=== PATIENT | male | born 1960 | race Caucasian/White ===

== ENCOUNTER 2016-07-10 09:23 | Emergency (ER) | payer MEDICARE, MEDICAID ==
--- NOTE | 2016-07-10 10:08 | ER Document Report ---
ED General - General Stated Complaint: PENILE SWELLING Mode of Arrival: Medic Information source: Patient Notes: 56-year-old male presents with 2 separate complaints. Patient's initial complaint is groin swelling patient denies any abdominal pain vomiting or constipation. Patient had a bowel movement prior to arrival. Patient also admits to intermittent cough that started only an hour ago TRAVEL OUTSIDE OF THE [place] IN LAST 30 DAYS: No - HPI Onset: Yesterday Onset/Duration: Sudden Quality of pain: No pain Severity: Mild Pain Level: Denies Associated symptoms: Nonproductive cough, Other Exacerbated by: Denies Relieved by: Denies Similar symptoms previously: No Recently seen / treated by doctor: No - Related Data Allergies/Adverse Reactions: No Known Allergies Allergy (Unverified 02/18/16 16:21) Past Medical History - Social History Smoking Status: Never Smoker Cigarette use (# per day): No Chew tobacco use (# tins/day): No Smoking Education Provided: No Family History: Reviewed & Not Pertinent Patient has suicidal ideation: No Patient has homicidal ideation: No Review of Systems - Review of Systems Notes: REVIEW OF SYSTEMS: CONSTITUTIONAL : Denies fever, chills, or sweats. Denies recent illness. EENT: Denies eye, ear, throat, or mouth pain or symptoms. Denies nasal or sinus congestion or discharge. Denies throat, tongue, or mouth swelling or difficulty swallowing. CARDIOVASCULAR: Denies chest pain. Denies palpitations or racing or irregular heart beat. Denies ankle edema. RESPIRATORY: Admits cough GASTROINTESTINAL: Admits to inguinal swelling GENITOURINARY: Denies difficulty urinating, painful urination, burning, frequency, blood in urine, or discharge. MUSCULOSKELETAL: Denies back or neck pain or stiffness. Denies joint pain or swelling. SKIN: rash on RLQ HEMATOLOGIC : Denies easy bruising or bleeding. LYMPHATIC: Denies swollen, enlarged glands. NEUROLOGICAL: Denies confusion or altered mental status. Denies passing out or loss of consciousness. Denies dizziness or lightheadedness. Denies headache. Denies weakness or paralysis or loss of use of either side. Denies problems with gait or speech. Denies sensory loss, numbness, or tingling. Denies seizures. PSYCHIATRIC: Denies anxiety or stress. Denies depression, suicidal ideation, or homicidal ideation. ALL OTHER SYSTEMS REVIEWED AND NEGATIVE. Dictation was performed using Dragon voice recognition software PHYSICAL EXAMINATION: GENERAL: Well-appearing, well-nourished and in no acute distress. HEAD: Atraumatic, normocephalic. EYES: Pupils equal round and reactive to light, extraocular movements intact, sclera anicteric, conjunctiva are normal. ENT: Nares patent, oropharynx clear without exudates. Moist mucous membranes. NECK: Normal range of motion, supple without lymphadenopathy LUNGS: Breath sounds clear to auscultation bilaterally and equal. No wheezes rales or rhonchi. HEART: Regular rate and rhythm without murmurs ABDOMEN: Soft, nontender, nondistended abdomen. No guarding, no rebound. No masses appreciated. Mild inguinal hernia easily reproducible Musculoskeletal: Normal range of motion, no pitting or edema. No cyanosis. NEUROLOGICAL: Cranial nerves grossly intact. Normal speech, normal gait. Normal sensory, motor exams PSYCH: Normal mood, normal affect. SKIN: circular scaly rash noted Course - Re-evaluation Re-evalutation: 07/10/16 10:08 Patient is in no respirator distress does not appear to have any life- threatening concerns at this time, x-rays are pending 07/10/16 11:04 X-rays none no significant abnormalities, patient will be sent home with inhaler and will be treated for ringworm otherwise stable for discharge After performing a Medical Screening Examination, I estimate there is LOW risk for ACUTE CORONARY SYNDROME, RESPIRATORY FAILURE, SEPSIS OR MENINGITIS, thus I consider the discharge disposition reasonable. The patient and I have discussed the diagnosis and risks, and we agree with discharging home with close follow- up. We also discussed returning to the Emergency Department immediately if new or worsening symptoms occur. We have discussed the symptoms which are most concerning (e.g., changing or worsening pain, trouble swallowing or breathing, neck stiffness, fever) that necessitate immediate return. 07/10/16 11:04 - Diagnostic Test Radiology reviewed: Image reviewed, Reports reviewed Discharge - Discharge Clinical Impression: Ringworm of body, Bronchitis Inguinal hernia Qualifiers: Obstruction and gangrene presence: without obstruction or gangrene Laterality: unilateral Recurrence: non-recurrent Qualified Code(s): K40.90 - Unilateral inguinal hernia, without obstruction or gangrene, not specified as recurrent Condition: Stable Disposition: HOME, SELF-CARE Instructions: Ringworm (Tinea Corporis) ([facility]), Bronchitis With Bronchospasm ( Wheezing) ([facility]) Additional Instructions: Follow up with your physician tomorrow for further care or return to the ED IMMEDIATELY if symptoms worsen or new concerns occur Prescriptions: Ketoconazole 30 gm TP BID 28 Days
[2016-07-10] MEDS ORDERED: ALBUTEROL SULFATE HFA (90 MCG/PUFF) 8 GM MDI (1 MDI/ER DISP) IH PRN (11:06)
== END 2016-07-10 19:00 | disposition home or self-care (01) ==
LOC: ER 09:23
DX: K40.90 Unilateral inguinal hernia, without obstruction or gangrene, not specified as recurrent (principal); B35.4 Tinea corporis; J40 Bronchitis, not specified as acute or chronic; R05 Cough
CPT/HCPCS: 99283; 74020; 71020; J3490

== ENCOUNTER 2016-08-30 14:14 | Emergency (ER) | payer MEDICARE, MEDICAID ==
--- NOTE | 2016-08-30 14:47 | ER Document Report ---
ED Respiratory Problem - General Mode of Arrival: Medic Information source: Patient TRAVEL OUTSIDE OF THE [place] IN LAST 30 DAYS: No - HPI Patient complains to provider of: Cough Onset: Just prior to arrival Duration: Worse/persistent Quality of pain: No pain Sputum amount: Small Similar symptoms previously: No Recently seen / treated by doctor: No - General Stated Complaint: COUGH Notes: Patient is a 56-year-old male who presents to the emergency department today with complaints of "a small amount of blood" in his sputum today. Patient states he had a "random cough" and noticed a fingernail-sized amount of blood in his sputum today prior to arrival. Patient has smoked for quite some time and continues to smoke however he states "he is quitting today". Patient resides at the [facility] but it is somewhat unclear why he is there. Patient is a poor historian so history is limited. Patient states he is mildly nauseated but denies any fevers, vomiting, or dark/tarry stools. (NAOMI GRECO) - Related Data Allergies/Adverse Reactions: No Known Allergies Allergy (Verified 07/10/16 11:25) Past Medical History - General Information source: Patient - Social History Smoking Status: Current Every Day Smoker Cigarette use (# per day): Yes Lives with: [facility] Family History: Reviewed & Not Pertinent - Past Medical History Cardiac Medical History: Reports: Hx Congestive Heart Failure, Hx Hypercholesterolemia, Hx Hypertension Pulmonary Medical History: Reports: Hx COPD Endocrine Medical History: Reports: Hx Diabetes Mellitus Type 2 GI Medical History: Reports: Hx Gastroesophageal Reflux Disease Surgical Hx: Negative Review of Systems - Review of Systems Constitutional: denies: Fever EENT: No symptoms reported Cardiovascular: No symptoms reported Respiratory: See HPI, Cough, Sputum - w/ blood Gastrointestinal: See HPI, Nausea. denies: Vomiting, Black stools Genitourinary: No symptoms reported Male Genitourinary: No symptoms reported Musculoskeletal: No symptoms reported Skin: No symptoms reported Hematologic/Lymphatic: No symptoms reported Neurological/Psychological: No symptoms reported -: Yes All other systems reviewed and negative Physical Exam - Notes Notes: Physical Exam: General: Alert, appears well. HEENT: Normocephalic. Atraumatic. PERRL. Extraocular movements intact. Oropharynx clear. Neck: Supple. Non-tender. Respiratory: No respiratory distress. Clear and equal breath sounds bilaterally. Cardiovascular: Regular rate and rhythm. Abdominal: Obese. Easily reducible hernia in RLQ. No distension. Normal Bowel Sounds. Back: Non-tender. No deformity or step off. Extremities: Moves all four extremities. Upper extremities: Normal inspection. Normal ROM. Lower extremities: Normal inspection. No edema. Normal ROM. Neurological: Normal cognition. AAOx4. Normal speech. Psychological: Normal affect. Normal Mood. Skin: Diffuse ecchymosis, dry. (NAOMI GRECO) Course - Re-evaluation Re-evalutation: 08/30/16 15:35 Pt is hemodynamically stable- 128/75, RR16, Sat 100 % on room air, HR 75 He complains of coughing up a small amount of red blood- smaller than the size of his fingernail. It happened one time. No fever, chest pain, shortness of breath. Denies frequent coughing. No vomiting, hematemesis or abdominal pain. Most likely souce is nasopharyngeal irrritation, self limited. Do not suspect alveolar hemorrhage, PE, pneumonia, malignancy. CXR- no acute disease Should follow up PCP if sx recur. (LEORA LARIOS) Discharge - Discharge Clinical Impression: Hemoptysis Condition: Good Disposition: HOME, SELF-CARE Additional Instructions: No hemoptysis (coughing up blood ) was detected here today. Chest x ray appears normal. The most likely cause is nasopharyngeal irritation. You may use nasal saline spray. Follow up with your primary care physician for further evaluation as needed. Return to ER if you are having frequent cough with blood , feel chest pain, short of breath, have fever or any new concerns. Prescriptions: Sodium Chloride [[place] Saline] 50 ml NS TID #1 spray Scribe Attestation: 08/30/16 15:42 I personally performed the services described in the documentation, reviewed and edited the documentation which was dictated to the scribe in my presence, and it accurately records my words and actions. (LEORA LARIOS) Scribe Documentation - Scribe Written by Vikas:: Vikas Amaral, 08/30/16 [id number] acting as scribe for :: José Miguel
--- NOTE | 2016-08-30 15:53 | RADIOLOGY REPORT (SQ) ---
EXAM DESCRIPTION: CHEST PA/LAT COMPLETED DATE/TIME: 08/30/2016 3:23 pm REASON FOR STUDY: cough COMPARISON: 07/10/2016 EXAM PARAMETERS: NUMBER OF VIEWS: two views TECHNIQUE: Digital Frontal and Lateral radiographic views of the chest acquired. RADIATION DOSE: NA LIMITATIONS: none FINDINGS: LUNGS AND PLEURA: No opacities, masses or pneumothorax. No pleural effusion. MEDIASTINUM AND HILAR STRUCTURES: No masses or contour abnormalities. HEART AND VASCULAR STRUCTURES: Heart normal size. No evidence for failure. BONES: No acute findings. HARDWARE: None in the chest. OTHER: No other significant finding. IMPRESSION: NO SIGNIFICANT RADIOGRAPHIC FINDING IN THE CHEST. TECHNICAL DOCUMENTATION: JOB ID: [id number] [employer]- All Rights Reserved
[2016-08-30 18:24] VITALS: BP 134/66
== END 2016-08-30 17:24 | disposition home or self-care (01) ==
LOC: ER 14:14
DX: R04.2 Hemoptysis (principal); R11.0 Nausea; E66.9 Obesity, unspecified; F17.210 Nicotine dependence, cigarettes, uncomplicated; I50.9 Heart failure, unspecified; I11.0 Hypertensive heart disease with heart failure; E78.00 Pure hypercholesterolemia, unspecified; J44.9 Chronic obstructive pulmonary disease, unspecified; E11.9 Type 2 diabetes mellitus without complications
CPT/HCPCS: 71020; 99283